=== PATIENT | female | born 1985 | race Asian ===

== ENCOUNTER 2020-05-17 06:21 | Emergency (ER) | payer OTHER ==
[~2020-05-17] VITALS: Ht 170.2 cm; Wt 63.5 kg
[2020-05-17 06:21] VITALS: BP 127/64
== END 2020-05-17 06:48 | disposition home or self-care (01) ==
LOC: ER 06:27
DX: Z20.828 Contact with and (suspected) exposure to other viral communicable diseases (principal)
CPT/HCPCS: 87426; 99283; C9803

== ENCOUNTER 2020-06-21 05:54 | Emergency (ER) | payer OTHER ==
[~2020-06-21] VITALS: Ht 170.2 cm; Wt 58.1 kg
[2020-06-21 06:01] VITALS: BP 121/69
== END 2020-06-21 06:43 | disposition home or self-care (01) ==
LOC: ER 05:57
DX: Z20.828 Contact with and (suspected) exposure to other viral communicable diseases (principal)
CPT/HCPCS: 87426; 99283; C9803